=== PATIENT | female | born 1955 | race Caucasian/White ===

== ENCOUNTER 2016-12-06 06:16 | Inpatient (IN) | payer MEDICAID, OTHER ==
[2016-12-06] MEDS ORDERED: ZIPRASIDONE 20 MG VIAL IM PRN (08:21)
[2016-12-06] MEDS ORDERED: MAGNESIUM HYDROXIDE 2,400 MG/10 ML CUP PO PRN (08:21)
[2016-12-06] MEDS ORDERED: MAG HYDROX/AL HYDROX/SIMETH 30 ML CUP PO PRN (08:21)
[2016-12-06] MEDS ORDERED: ACETAMINOPHEN TAB 325 MG TAB PO PRN (08:21)
[2016-12-06 08:34] VITALS: BP 135/80; PULSE 79; RESP 20; TEMP 97.5; BMI 21.4
[2016-12-06] MEDS ORDERED: LORazepam 1 MG TAB PO PRN (08:39)
[2016-12-06] MEDS ORDERED: NAPROXEN 250 MG TAB PO SCH (09:00)
[2016-12-06] MEDS ORDERED: LISINOPRIL 20 MG TAB PO SCH (09:00)
[2016-12-06] MEDS ORDERED: NICOTINE 14MG/24HR PATCH TRANSDERM SCH (09:00)
[2016-12-06] MEDS ORDERED: METOPROLOL SUCCINATE (ER) 25 MG TAB.ER.24H PO SCH (09:00)
[2016-12-06] MEDS ORDERED: CLOPIDOGREL 75 MG TAB PO SCH (09:00)
[2016-12-06] MEDS ORDERED: traMADol 50 MG TAB PO PRN (10:52)
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
[2016-12-06] MEDS ORDERED: ATORVASTATIN 10 MG TAB PO SCH (21:00)
== END 2016-12-06 18:07 | disposition home or self-care (01) | DRG 882 ==
LOC: 3MHU 07:47
PROVIDERS: ADMIT Psychiatry & Neurology Psychiatry; ATTEND Psychiatry & Neurology Psychiatry
DX: F43.25 Adjustment disorder with mixed disturbance of emotions and conduct (principal); I10 Essential (primary) hypertension; E78.5 Hyperlipidemia, unspecified; F17.200 Nicotine dependence, unspecified, uncomplicated; F60.9 Personality disorder, unspecified; G89.29 Other chronic pain; I25.10 Atherosclerotic heart disease of native coronary artery without angina pectoris; Z59.0 Homelessness; Z95.5 Presence of coronary angioplasty implant and graft; Z96.1 Presence of intraocular lens; Z88.5 Allergy status to narcotic agent; Z79.02 Long term (current) use of antithrombotics/antiplatelets; Z79.899 Other long term (current) drug therapy